=== PATIENT | male | born 1945 | race Caucasian/White ===

== ENCOUNTER 2017-03-15 10:52 | Inpatient (IN) | payer OTHER ==
[~2017-03-15] VITALS: Ht 157.5 cm; Wt 87.5 kg
[~2017-03-15 10:52] MED LIST: ARAVA10 MG PO; ATORVASTATIN CA40 MG PO; COZAAR100 MG PO; GLYCOTROL CAPS1 EACH PO; HUMULIN 70100 UNIT/1; PRILOSEC OTC20 MG PO; TRAMADOL HCL50 MG PO
[2017-03-23] MEDS ORDERED: LIPITOR40 MG PO (09:58)
[2017-03-23] MEDS ORDERED: PRILOSEC OTC20 MG PO (09:58)
[2017-03-23] MEDS ORDERED: SENOKOT-S TABL1 EACH PO (09:58)
[2017-03-23] MEDS ORDERED: XARELTO10 MG PO (09:58)
[2017-03-23] MEDS ORDERED: BACITRACIN28.4 G1 TOP (09:58)
[2017-03-23] MEDS ORDERED: INTEGRA PLUS C1 EACH PO (09:58)
[2017-03-23] MEDS ORDERED: TRAMADOL HCL50 MG PO (09:58)
[2017-03-23] MEDS ORDERED: LOSARTAN POTAS100 MG PO (09:58)
== END 2017-03-23 13:39 | DRG 470 ==
LOC: O/R 03-19 05:50 → SURH 03-19 05:50
PROVIDERS: Orthopaedic Surgery Sports Medicine
PROC: 0SRC0J9 Replacement of Right Knee Joint with Synthetic Substitute, Cemented, Open Approach (ICD-10-PCS; principal; 2017-03-19 09:00)
PROC: 30233N1 Transfusion of Nonautologous Red Blood Cells into Peripheral Vein, Percutaneous Approach (ICD-10-PCS; 2017-03-22)
DX: M16.11 Unilateral primary osteoarthritis, right hip (principal); D62 Acute posthemorrhagic anemia; E11.9 Type 2 diabetes mellitus without complications; I10 Essential (primary) hypertension; K29.70 Gastritis, unspecified, without bleeding; E78.00 Pure hypercholesterolemia, unspecified